=== PATIENT | male | born 1970 | race Caucasian/White ===

== ENCOUNTER → 2016-12-03 | Outpatient (CLI) | payer OTHER ==
[~2016-12-03] MED LIST: ASPIRIN325 MG PO; BACTRIM,SEPT1 TABLE1 PO; CIPRO500 MG PO; CIPROFLOXACIN500 M1 PO; ENULOSE10 GM/15 M PO; FLAGYL500 MG PO; FUROSEMIDE40 MG PO; FUROSEMIDE80 MG PO; HYDROCODON-ACE1 EAC7 PO; K-PHOS ORIGINA500 M1 PO; LACTULOSE10 GM/151 PO; LASIX40 MG PO; LASIX80 MG PO; LEVAQUIN750 MG PO; MAGNESIUM OXID500 MG PO; MAGNESIUM100 MG PO; POTASSIUM-9999 MG PO; SPIRONOLACTONE100 MG PO; SPIRONOLACTONE50 MG PO; VITAMIN B-1100 MG PO; VITAMIN D-3 401 EACH PO; XIFAXAN550 MG PO; ZINC SULFATE220 M1 PO; [UNRECOGNIZED DRUG - OTHER] TP; [UNRECOGNIZED DRUG - OTHER] TP
== END | disposition home or self-care (01) ==
LOC: RAD 12:38 → EDSTATUS 13:15
PROC: 0W9G3ZZ Drainage of Peritoneal Cavity, Percutaneous Approach (ICD-10-PCS; principal; 2016-12-03)
DX: K70.31 Alcoholic cirrhosis of liver with ascites (principal)

== ENCOUNTER → 2016-12-08 | Outpatient (CLI) | payer OTHER | END | disposition home or self-care (01) | LOC: RAD 07:39 → EDSTATUS 08:15 | PROC: 0W9G3ZZ Drainage of Peritoneal Cavity, Percutaneous Approach (ICD-10-PCS; principal; 2016-12-08) | DX: K70.31 Alcoholic cirrhosis of liver with ascites (principal) ==

== ENCOUNTER → 2016-12-15 | Outpatient (CLI) | payer OTHER | END | disposition home or self-care (01) | LOC: RAD 07:49 → EDSTATUS 08:30 → RAD 08:30 | PROC: 0W9G3ZZ Drainage of Peritoneal Cavity, Percutaneous Approach (ICD-10-PCS; principal; 2016-12-15) | DX: K70.31 Alcoholic cirrhosis of liver with ascites (principal); K42.9 Umbilical hernia without obstruction or gangrene ==

== ENCOUNTER 2016-12-22 11:09 | Inpatient (IN) | payer OTHER ==
[~2016-12-22] VITALS: Ht 175.3 cm; Wt 90.5 kg
[~2016-12-22 11:09] MED LIST changes: -FUROSEMIDE80 MG PO
[2016-12-22 11:32] LABS: HEMATOCRIT 37.5 % (38.0-50.0); MCH 33.4 PG (29.0-34.0); MCHC 35.7 G/DL (30.0-36.0); MCV 93.5 FL (86-99); MEAN PLAT.VOLUME 10.4 uM^3 (9.0-12.4); PLATELET COUNT 73 K/uL (156-360); RBC DIS.WIDTH-CV 14.3 % (11.8-14.6); RBC DIS.WIDTH-SD 47.2 % (39-53); RED BLOOD COUNT 4.01 M/uL (4.00-5.50); WHITE BLOOD COUNT 11.1 K/uL (4.1-10.2)
[2016-12-22 11:45] LABS: CHLORIDE 91 mEq/L (99-109); POTASSIUM 3.3 mEq/L (3.7-5.4); SODIUM 123 mEq/L (136-147)
[2016-12-22 11:47] LABS: GLUCOSE 117 mg/dL (70-99)
[2016-12-22 11:48] LABS: ANION GAP 10 MEQ/L (2-14)
[2016-12-22 11:49] LABS: TOTAL BILIRUBIN 5.9 mg/dL (0.0-1.0)
[2016-12-22 11:50] LABS: ALKALINE PHOSPHATASE 118 IU/L (3-129)
[2016-12-22 11:51] LABS: GFR ESTIMATE (CALCULATED) > 59 mL/min/
[2016-12-22 11:52] LABS: DIRECT BILIRUBIN 2.8 mg/dL (0.0-0.3); UREA NITROGEN (BUN) 31 mg/dL (9-23)
[2016-12-22 11:54] LABS: LIPASE 50 U/L (1.0-51.0)
[2016-12-22] MEDS ORDERED: FUROSEMIDE80 MG PO (12:07)
[2016-12-22 15:53] LABS: HEMATOCRIT 37.7 % (38.0-50.0); MCH 32.8 PG (29.0-34.0); MCHC 34.7 G/DL (30.0-36.0); MCV 94.5 FL (86-99); MEAN PLAT.VOLUME 11.1 uM^3 (9.0-12.4); PLATELET COUNT 75 K/uL (156-360); RBC DIS.WIDTH-CV 14.5 % (11.8-14.6); RBC DIS.WIDTH-SD 49.8 % (39-53); RED BLOOD COUNT 3.99 M/uL (4.00-5.50); WHITE BLOOD COUNT 9.7 K/uL (4.1-10.2)
[2016-12-22 16:05] LABS: BASE EXCESS -2.4 mEq/L (-3 to +3); BICARBONATE 23.7 mEq/L (22-26); CARBOXY HGB 3.3 % (0-5); METHEMOGLOBIN 1.3 % (0-1.5); PCO2 45 mm Hg (35-45); PO2 97 mm Hg (80-100); pH 7.33 (7.35-7.45)
[2016-12-22 16:06] LABS: COMMENTS - BLOOD GASES +C; DEVICE PB840; FI02 100 %; MECHANICAL RATE 16 resp/min; MODE ACVC+; PEEP 10 CM/H20; SITE RR +A; TIDAL VOLUME 500 ML; TOTAL RESP RATE 16 resp/min
[2016-12-22 16:21] LABS: ANION GAP 9 MEQ/L (2-14); CHLORIDE 94 MEQ/L (99-109); GFR ESTIMATE (CALCULATED) > 59 mL/min/; GLUCOSE 102 mg/dL (70-99); POTASSIUM 3.4 MEQ/L (3.7-5.4); SAMPLE HEMOLYSIS CHECK 0; SAMPLE ICTERIC CHECK 1; SAMPLE LIPEMIA CHECK 0; SODIUM 127 MEQ/L (136-147); UREA NITROGEN (BUN) 27 mg/dL (9-23)
[2016-12-22 17:30] VITALS: BP 104/81
[2016-12-22 19:00] VITALS: BP 90/41
[2016-12-22 19:33] LABS: MAGNESIUM 1.7 mg/dl (1.3-2.7)
[2016-12-22 19:39] LABS: METH RESISTANT S AUREUS PCR NEGATIVE (NEGATIVE)
[2016-12-22 19:40] LABS: PROBE CHECK PASS; SPECIMEN PROCESSING CONTROL PASS
[2016-12-22 20:00] VITALS: BP 102/48
[2016-12-22 21:00] VITALS: BP 96/49
[2016-12-22 22:00] VITALS: BP 95/51
[2016-12-22 23:00] VITALS: BP 94/44
[2016-12-23] VITALS (23 sets, daily range): BP systolic 82–101; BP diastolic 27–50
[2016-12-23 05:29] LABS: POINT-OF-CARE METER ID UU13113803
[2016-12-23 05:53] LABS: HEMATOCRIT 36.1 % (38.0-50.0); INTER. NORMALIZED RATIO 1.5; MCH 33.2 PG (29.0-34.0); MCHC 33.5 G/DL (30.0-36.0); MCV 98.9 FL (86-99); MEAN PLAT.VOLUME 10.1 uM^3 (9.0-12.4); PLATELET COUNT 95 K/uL (156-360); PROTHROMBIN TIME 15.1 (9.2-11.2); RBC DIS.WIDTH-SD 54.3 % (39-53); RED BLOOD COUNT 3.65 M/uL (4.00-5.50); WHITE BLOOD COUNT 22.3 K/uL (4.1-10.2)
[2016-12-23 06:25] LABS: CHLORIDE 93 MEQ/L (99-109); SODIUM 128 MEQ/L (136-147); UREA NITROGEN (BUN) 32 mg/dL (9-23)
[2016-12-23 06:29] LABS: GFR ESTIMATE (CALCULATED) 46 mL/min/; GLUCOSE 206 mg/dL (70-99); POTASSIUM 4.1 MEQ/L (3.7-5.4)
[2016-12-23 06:35] LABS: ANION GAP 25 MEQ/L (2-14); MAGNESIUM 1.8 mg/dl (1.3-2.7); SAMPLE HEMOLYSIS CHECK 0; SAMPLE ICTERIC CHECK 1; SAMPLE LIPEMIA CHECK 0
[2016-12-23 07:20] LABS: BASE EXCESS -12.5 mEq/L (-3 to +3); CARBOXY HGB 2.8 % (0-5); METHEMOGLOBIN 1.7 % (0-1.5); PCO2 20 mm Hg (35-45); PO2 73 mm Hg (80-100); pH 7.35 (7.35-7.45)
[2016-12-23 07:21] LABS: COMMENTS - BLOOD GASES A+C+; DEVICE 840; FI02 30 %; MODE SPONT; PEEP 5 CM/H20; PRES. SUPPORT 5 CM/H2O; SITE RR; TOTAL RESP RATE 12 resp/min
[2016-12-23 11:35] LABS: POINT-OF-CARE METER ID UU13113731
[2016-12-23 17:53] LABS: POINT-OF-CARE METER ID UU13113803
[2016-12-23 21:00] LABS: ANION GAP 16 MEQ/L (2-14); CHLORIDE 99 MEQ/L (99-109); GFR ESTIMATE (CALCULATED) 41 mL/min/; GLUCOSE 183 mg/dL (70-99); POTASSIUM 4.6 MEQ/L (3.7-5.4); SAMPLE HEMOLYSIS CHECK 2; SAMPLE ICTERIC CHECK 0; SAMPLE LIPEMIA CHECK 0; SODIUM 127 MEQ/L (136-147); UREA NITROGEN (BUN) 37 mg/dL (9-23)
[2016-12-24] VITALS (19 sets, daily range): BP systolic 79–124; BP diastolic 27–69
[2016-12-24 06:15] LABS: ANION GAP 10 MEQ/L (2-14); CHLORIDE 100 MEQ/L (99-109); GFR ESTIMATE (CALCULATED) 36 mL/min/; GLUCOSE 179 mg/dL (70-99); POTASSIUM 3.7 MEQ/L (3.7-5.4); SAMPLE HEMOLYSIS CHECK 0; SAMPLE ICTERIC CHECK 1; SAMPLE LIPEMIA CHECK 0; SODIUM 129 MEQ/L (136-147); UREA NITROGEN (BUN) 43 mg/dL (9-23)
[2016-12-24 06:17] LABS: MAGNESIUM 2.2 mg/dl (1.3-2.7)
[2016-12-24 07:39] LABS: MCH 33.4 PG (29.0-34.0); MCV 95.6 FL (86-99); RBC DIS.WIDTH-CV 15.2 % (11.8-14.6); RBC DIS.WIDTH-SD 53.2 % (39-53); RED BLOOD COUNT 2.93 M/uL (4.00-5.50)
[2016-12-24 07:49] LABS: BASE EXCESS -3.9 mEq/L (-3 to +3); BICARBONATE 18.6 mEq/L (22-26); COMMENTS - BLOOD GASES A+C+; DEVICE 840; FI02 30 %; INSPIRATION TIME 0.9 seconds; MECHANICAL RATE 14 resp/min; METHEMOGLOBIN 1.5 % (0-1.5); MODE PC; PCO2 25 mm Hg (35-45); PEEP 5 CM/H20; PO2 70 mm Hg (80-100); SITE LR; TOTAL RESP RATE 14 resp/min; pH 7.48 (7.35-7.45)
[2016-12-24 08:12] LABS: HEMATOLOGY COMMENT 1 SMEAR COMPATIBLE; MEAN PLAT.VOLUME 10.9 uM^3 (9.0-12.4)
[2016-12-24 08:13] LABS: PLATELET COUNT 56 K/uL (156-360)
[2016-12-25] VITALS (19 sets, daily range): BP systolic 82–107; BP diastolic 32–66
[2016-12-25 05:38] LABS: POINT-OF-CARE METER ID UU13113731
[2016-12-25 05:55] LABS: ANION GAP 12 MEQ/L (2-14); CHLORIDE 103 MEQ/L (99-109); GFR ESTIMATE (CALCULATED) 49 mL/min/; GLUCOSE 122 mg/dL (70-99); MAGNESIUM 2.1 mg/dl (1.3-2.7); POTASSIUM 3.6 MEQ/L (3.7-5.4); SAMPLE HEMOLYSIS CHECK 0; SAMPLE ICTERIC CHECK 1; SAMPLE LIPEMIA CHECK 0; SODIUM 134 MEQ/L (136-147); UREA NITROGEN (BUN) 41 mg/dL (9-23)
[2016-12-25 06:42] LABS: HEMATOCRIT 24.8 % (38.0-50.0); MCH 32.9 PG (29.0-34.0); MCHC 34.3 G/DL (30.0-36.0); MCV 96.1 FL (86-99); RBC DIS.WIDTH-CV 15.2 % (11.8-14.6); RBC DIS.WIDTH-SD 53.5 % (39-53); RED BLOOD COUNT 2.58 M/uL (4.00-5.50)
[2016-12-25 06:45] LABS: WHITE BLOOD COUNT 6.7 K/uL (4.1-10.2)
[2016-12-25 07:21] LABS: MEAN PLAT.VOLUME 10.2 uM^3 (9.0-12.4)
[2016-12-25 07:27] LABS: PLATELET COUNT 38 K/uL (156-360)
[2016-12-25 12:25] LABS: POINT-OF-CARE METER ID UU13113731
[2016-12-25 13:00] LABS: BASE EXCESS -3.6 mEq/L (-3 to +3); BICARBONATE 18.7 mEq/L (22-26); CARBOXY HGB 1.6 % (0-5); COMMENTS - BLOOD GASES NA C+; DEVICE VENT; FI02 30 %; METHEMOGLOBIN 1.7 % (0-1.5); MODE TUBE COMP; PCO2 24 mm Hg (35-45); PEEP 5 CM/H20; PO2 98 mm Hg (80-100); SITE RR; TOTAL RESP RATE 8 resp/min
[2016-12-25 18:25] LABS: POINT-OF-CARE METER ID UU14174217; POINT-OF-CARE USER ID 606021424
[2016-12-26] VITALS (14 sets, daily range): BP systolic 88–120; BP diastolic 53–68
[2016-12-26 00:09] LABS: POINT-OF-CARE METER ID UU13113731
[2016-12-26 05:16] LABS: POINT-OF-CARE METER ID UU13113731
[2016-12-26 05:58] LABS: HEMATOCRIT 26.5 % (38.0-50.0); MCV 97.1 FL (86-99); RBC DIS.WIDTH-CV 15.6 % (11.8-14.6); RBC DIS.WIDTH-SD 54.5 % (39-53); RED BLOOD COUNT 2.73 M/uL (4.00-5.50); WHITE BLOOD COUNT 7.3 K/uL (4.1-10.2)
[2016-12-26 06:24] LABS: ANION GAP 10 MEQ/L (2-14); CHLORIDE 107 MEQ/L (99-109); GFR ESTIMATE (CALCULATED) 58 mL/min/; GLUCOSE 143 mg/dL (70-99); POTASSIUM 3.7 MEQ/L (3.7-5.4); SAMPLE HEMOLYSIS CHECK 0; SAMPLE ICTERIC CHECK 1; SAMPLE LIPEMIA CHECK 0; SODIUM 135 MEQ/L (136-147); UREA NITROGEN (BUN) 32 mg/dL (9-23)
[2016-12-26 07:14] LABS: MEAN PLAT.VOLUME 11.5 uM^3 (9.0-12.4); PLATELET COUNT 39 K/uL (156-360)
[2016-12-26 12:57] LABS: POINT-OF-CARE METER ID UU14174217
[2016-12-27] VITALS (7 sets, daily range): BP systolic 0–120; BP diastolic 0–80
[2016-12-27 06:13] LABS: ANION GAP 10 MEQ/L (2-14); CHLORIDE 105 MEQ/L (99-109); GFR ESTIMATE (CALCULATED) 58 mL/min/; GLUCOSE 171 mg/dL (70-99); MAGNESIUM 1.9 mg/dl (1.3-2.7); POTASSIUM 4.1 MEQ/L (3.7-5.4); SAMPLE HEMOLYSIS CHECK 0; SAMPLE ICTERIC CHECK 2; SAMPLE LIPEMIA CHECK 0; SODIUM 133 MEQ/L (136-147); UREA NITROGEN (BUN) 32 mg/dL (9-23)
[2016-12-27 06:52] LABS: HEMATOCRIT 28.3 % (38.0-50.0); MCH 33.6 PG (29.0-34.0); MCHC 34.6 G/DL (30.0-36.0); MCV 96.9 FL (86-99); MEAN PLAT.VOLUME 10.9 uM^3 (9.0-12.4); PLATELET COUNT 61 K/uL (156-360); RBC DIS.WIDTH-CV 15.8 % (11.8-14.6); RED BLOOD COUNT 2.92 M/uL (4.00-5.50); WHITE BLOOD COUNT 11.9 K/uL (4.1-10.2)
[2016-12-27 08:45] LABS: HEMATOLOGY COMMENT 1 SMEAR COMPATIBLE
[2016-12-28 00:03] VITALS: BP 105/61
[2016-12-28 06:25] LABS: HEMATOCRIT 31.4 % (38.0-50.0); MCH 33.2 PG (29.0-34.0); MCHC 34.4 G/DL (30.0-36.0); MCV 96.6 FL (86-99); MEAN PLAT.VOLUME 11.2 uM^3 (9.0-12.4); PLATELET COUNT 58 K/uL (156-360); RBC DIS.WIDTH-CV 15.7 % (11.8-14.6); RBC DIS.WIDTH-SD 53.9 % (39-53); RED BLOOD COUNT 3.25 M/uL (4.00-5.50); WHITE BLOOD COUNT 15.1 K/uL (4.1-10.2)
[2016-12-28 06:53] LABS: ANION GAP 11 MEQ/L (2-14); CHLORIDE 101 MEQ/L (99-109); GFR ESTIMATE (CALCULATED) 46 mL/min/; GLUCOSE 178 mg/dL (70-99); POTASSIUM 4.1 MEQ/L (3.7-5.4); SAMPLE HEMOLYSIS CHECK 0; SAMPLE ICTERIC CHECK 2; SAMPLE LIPEMIA CHECK 0; SODIUM 128 MEQ/L (136-147); UREA NITROGEN (BUN) 36 mg/dL (9-23)
[2016-12-28 06:56] LABS: MAGNESIUM 2.2 mg/dl (1.3-2.7)
[2016-12-28 07:30] VITALS: BP 105/56
[2016-12-28 15:24] VITALS: BP 92/51
[2016-12-28 21:35] LABS: POINT-OF-CARE METER ID UU13113725
[2016-12-28 22:59] VITALS: BP 100/62
[2016-12-29 06:21] LABS: POINT-OF-CARE METER ID UU13113725
[2016-12-29 06:35] LABS: HEMATOCRIT 29.6 % (38.0-50.0); MCH 34.1 PG (29.0-34.0); MCHC 35.5 G/DL (30.0-36.0); MCV 96.1 FL (86-99); RBC DIS.WIDTH-CV 16.2 % (11.8-14.6); RBC DIS.WIDTH-SD 53.1 % (39-53); RED BLOOD COUNT 3.08 M/uL (4.00-5.50); WHITE BLOOD COUNT 17.4 K/uL (4.1-10.2)
[2016-12-29 06:46] LABS: MEAN PLAT.VOLUME 10.6 uM^3 (9.0-12.4)
[2016-12-29 06:48] LABS: PLATELET COUNT 77 K/uL (156-360)
[2016-12-29 07:06] LABS: ANION GAP 10 MEQ/L (2-14); CHLORIDE 98 MEQ/L (99-109); GLUCOSE 149 mg/dL (70-99); MAGNESIUM 2.3 mg/dl (1.3-2.7); POTASSIUM 4.7 MEQ/L (3.7-5.4); SAMPLE HEMOLYSIS CHECK 0; SAMPLE ICTERIC CHECK 1; SAMPLE LIPEMIA CHECK 0; SODIUM 126 MEQ/L (136-147); UREA NITROGEN (BUN) 44 mg/dL (9-23)
[2016-12-29 07:07] LABS: GFR ESTIMATE (CALCULATED) 27 mL/min/
[2016-12-29 09:10] VITALS: BP 88/46
[2016-12-29 10:50] LABS: ALKALINE PHOSPHATASE 62 IU/L (3-129); DIRECT BILIRUBIN 3.2 mg/dL (0.0-0.3); TOTAL BILIRUBIN 6.2 MG/DL (0.0-1.0)
[2016-12-29 11:34] LABS: POINT-OF-CARE METER ID UU13113725
[2016-12-29 11:45] VITALS: BP 100/56
[2016-12-29 12:27] VITALS: BP 96/54
[2016-12-29 16:29] VITALS: BP 107/78
[2016-12-29 19:40] VITALS: BP 96/54
[2016-12-29 22:11] LABS: POINT-OF-CARE METER ID UU13113781
[2016-12-30 00:25] VITALS: BP 91/50
[2016-12-30 04:51] VITALS: BP 106/55
[2016-12-30 06:53] LABS: MCH 33.3 PG (29.0-34.0); MCHC 34.5 G/DL (30.0-36.0); MCV 96.7 FL (86-99); MEAN PLAT.VOLUME 10.7 uM^3 (9.0-12.4); PLATELET COUNT 70 K/uL (156-360); RBC DIS.WIDTH-CV 16.7 % (11.8-14.6); RBC DIS.WIDTH-SD 54.9 % (39-53); WHITE BLOOD COUNT 16.9 K/uL (4.1-10.2)
[2016-12-30 07:16] LABS: BILIRUBIN NEGATIVE; BLOOD NEGATIVE; COLOR DK YELLOW ((YELLOW)); GLUCOSE (STRIP) NEGATIVE; KETONES TRACE; LEUKOCYTES NEGATIVE; NITRITE NEGATIVE; PH, URINE 5.5 (5-8); PROTEIN (STRIP) TRACE; UROBILINOGEN 0.2 MG/DL (0.2-1.0)
[2016-12-30 07:21] LABS: SPECIFIC GRAVITY 1.019 (1.000-1.030)
[2016-12-30 07:31] LABS: ALKALINE PHOSPHATASE 61 IU/L (3-129); ANION GAP 13 MEQ/L (2-14); CHLORIDE 97 MEQ/L (99-109); GFR ESTIMATE (CALCULATED) 19 mL/min/; GLUCOSE 166 mg/dL (70-99); MAGNESIUM 2.6 mg/dl (1.3-2.7); POTASSIUM 5.4 MEQ/L (3.7-5.4); SAMPLE HEMOLYSIS CHECK 0; SAMPLE ICTERIC CHECK 2; SAMPLE LIPEMIA CHECK 0; SODIUM 126 MEQ/L (136-147); TOTAL BILIRUBIN 6.7 MG/DL (0.0-1.0); UREA NITROGEN (BUN) 53 mg/dL (9-23)
[2016-12-30 07:32] LABS: ADD MIUA? NO; UCUL ADDED? NO
[2016-12-30 07:33] VITALS: BP 96/52
[2016-12-30 07:43] LABS: POINT-OF-CARE METER ID UU14174216; POINT-OF-CARE USER ID ENVKC36
[2016-12-30 08:27] LABS: BASOPHIL COUNT 0.1 K/uL (0-0.1); EOSINOPHIL (%) 0.9 % (0-5); EOSINOPHIL COUNT 0.2 K/uL (0-0.3); IMMATURE GRANULOCYTE (%) 4.1 % (0.0-0.7); IMMATURE GRANULOCYTE COUNT 0.7 K/uL; MONOCYTE (%) 9.6 % (3-12); MONOCYTE COUNT 1.6 K/uL (0-0.8); NEUTROPHIL (%) 79.1 % (45-76); NEUTROPHIL COUNT 13.4 K/uL (1.8-6.4)
[2016-12-30 08:37] LABS: HEMATOLOGY COMMENT 1 SMEAR COMPATIBLE; PLAT.SUFFICIENCY DECREASED; USER ID TLW
[2016-12-30 09:37] LABS: UR CREATININE CONCENTRATION 135.2 MG/DL
[2016-12-30 10:00] LABS: BASE EXCESS -9.4 mEq/L (-3 to +3); BICARBONATE 14.9 mEq/L (22-26); CARBOXY HGB 2.7 % (0-5); COMMENTS - BLOOD GASES A+C+; DEVICE NC; METHEMOGLOBIN 1.9 % (0-1.5); O2 FLOW 6 L/MIN; PCO2 27 mm Hg (35-45); PO2 70 mm Hg (80-100); SITE LR; TOTAL RESP RATE 12 resp/min; pH 7.35 (7.35-7.45)
[2016-12-30 10:08] LABS: POINT-OF-CARE METER ID UU14174216; POINT-OF-CARE USER ID ENVKC36
[2016-12-30 11:29] LABS: POINT-OF-CARE METER ID UU14174216; POINT-OF-CARE USER ID ENVKC36
[2016-12-30 12:00] VITALS: BP 97/44
[2016-12-30 16:08] LABS: HEMATOCRIT 28.9 % (38.0-50.0); MCH 33.6 PG (29.0-34.0); MCHC 35.3 G/DL (30.0-36.0); MCV 95.1 FL (86-99); RBC DIS.WIDTH-CV 16.7 % (11.8-14.6); RBC DIS.WIDTH-SD 54.2 % (39-53); RED BLOOD COUNT 3.04 M/uL (4.00-5.50)
[2016-12-30 16:25] LABS: POINT-OF-CARE METER ID UU14174216; POINT-OF-CARE USER ID ENVKC36
[2016-12-30 16:33] VITALS: BP 107/46
[2016-12-30 16:38] LABS: HEMATOLOGY COMMENT 1 SMEAR COMPATIBLE; PLAT.SUFFICIENCY DECREASED; USER ID SS
[2016-12-30 16:39] LABS: EOSINOPHIL (%) 1.5 % (0-5); EOSINOPHIL COUNT 0.2 K/uL (0-0.3); IMMATURE GRANULOCYTE (%) 3.2 % (0.0-0.7); IMMATURE GRANULOCYTE COUNT 0.5 K/uL; MONOCYTE (%) 8.3 % (3-12); MONOCYTE COUNT 1.3 K/uL (0-0.8); NEUTROPHIL (%) 80.6 % (45-76); NEUTROPHIL COUNT 12.9 K/uL (1.8-6.4); PLATELET COUNT 95 K/uL (156-360)
[2016-12-30 16:45] LABS: ALKALINE PHOSPHATASE 63 IU/L (3-129); ANION GAP 15 MEQ/L (2-14); CHLORIDE 96 MEQ/L (99-109); GFR ESTIMATE (CALCULATED) 17 mL/min/; GLUCOSE 170 mg/dL (70-99); POTASSIUM 5.3 MEQ/L (3.7-5.4); SAMPLE HEMOLYSIS CHECK 0; SAMPLE ICTERIC CHECK 1; SAMPLE LIPEMIA CHECK 0; SODIUM 125 MEQ/L (136-147); TOTAL BILIRUBIN 6.4 MG/DL (0.0-1.0); UREA NITROGEN (BUN) 57 mg/dL (9-23)
[2016-12-30 21:19] LABS: POINT-OF-CARE METER ID UU14174216
== END 2016-12-30 22:10 | DRG 353 ==
LOC: EME 11:09 → 2SOUTH 15:01 → 4EAST 15:01 → 4WEST 15:01 → 4EAST 15:01 → 4WEST 16:36 → 5EAST 12-27 18:30 → 4EAST 12-29 12:48
PROVIDERS: Emergency Medicine; Hospitalist; Internal Medicine; Internal Medicine Nephrology; Surgery
DX: K43.9 Ventral hernia without obstruction or gangrene (principal); J96.01 Acute respiratory failure with hypoxia; L89.322 Pressure ulcer of left buttock, stage 2; N17.9 Acute kidney failure, unspecified; K65.2 Spontaneous bacterial peritonitis; E87.1 Hypo-osmolality and hyponatremia; K76.6 Portal hypertension; R16.1 Splenomegaly, not elsewhere classified; I85.00 Esophageal varices without bleeding; D69.6 Thrombocytopenia, unspecified; J44.9 Chronic obstructive pulmonary disease, unspecified; E87.2 Acidosis; J98.11 Atelectasis; L98.492 Non-pressure chronic ulcer of skin of other sites with fat layer exposed; E87.6 Hypokalemia; K72.90 Hepatic failure, unspecified without coma; E11.9 Type 2 diabetes mellitus without complications; F17.210 Nicotine dependence, cigarettes, uncomplicated; K70.31 Alcoholic cirrhosis of liver with ascites; Z66 Do not resuscitate; D63.1 Anemia in chronic kidney disease; B96.5 Pseudomonas (aeruginosa) (mallei) (pseudomallei) as the cause of diseases classified elsewhere
CPT/HCPCS: 36600; 71010; 74000; 76705; 76770; 80048; 80048 91; 80053; 80076; 81003; 82140; 82330; 82436; 82570; 82803; 82948; 83605; 83690; 83735; 84100; 84133; 84300; 85025; 85025 91; 85027; 85610; 85730; 86850; 86900; 86901; 87040; 87070; 87075; 87077; 87086; 87106; 87186; 87205; 87641; 88304; 93005; 94002; 94003; 94640; 94640 76; 94760; 94799; 97530 GO; 97530 GP; 99202; 99281; 99284; C9113; J0690; J0692; J1815; J1940; J2405; J2543; J2704; J2710; J3010; J3475; J3480; J7030; J7050; J7120; P9045; P9047; S0028

== ENCOUNTER → 2016-12-22 | Outpatient (CLI) | payer OTHER | END | disposition home or self-care (01) | LOC: RAD 07:51 → EDSTATUS 08:30 | PROC: 0W9G3ZZ Drainage of Peritoneal Cavity, Percutaneous Approach (ICD-10-PCS; principal; 2016-12-22) | DX: K70.31 Alcoholic cirrhosis of liver with ascites (principal) | CPT/HCPCS: J2405; J2710; J3010 ==